=== PATIENT | male | born 1990 | race Hispanic/Latino ===

== ENCOUNTER 2021-04-14 18:37 | Emergency (ER) | payer SELFPAY ==
--- NOTE | 2021-04-14 19:58 | ER ---
Nurse's Notes [facility] Name: Munir Murray Age: 30 yrs Sex: Male : 1990 Arrival Date: 04/14/2021 Time: 18:40 Bed 7 Private MD: Diagnosis: Balanitis Presentation: 04/14 18:48 Chief complaint: Patient states: "I think I might have an STD, I have a little pimple jd3 on my penis that is causing some pain on touching it. potential exposure was last weekend.". Coronavirus screen: At this time, the client does not indicate any symptoms associated with coronavirus-19. Ebola Screen: Patient negative for fever greater than or equal to 101.5 degrees Fahrenheit, and additional compatible Ebola Virus Disease symptoms. Initial Sepsis Screen: Does the patient meet any 2 criteria? No. Patient's initial sepsis screen is negative. Does the patient have a suspected source of infection? No. Patient's initial sepsis screen is negative. Risk Assessment: Do you want to hurt yourself or someone else? Patient reports no desire to harm self or others. Onset of symptoms was April 11, 2021. 18:48 Method Of Arrival: Ambulatory jd3 18:48 Acuity: RITCHIE 4 jd3 Triage Assessment: 19:41 General: Appears in no apparent distress. Behavior is calm, cooperative. Pain: Denies ak2 pain. Historical: - Allergies: 18:50 No Known Allergies; jd3 - Home Meds: 18:50 None [Active]; jd3 - PMHx: 18:50 None; jd3 - PSHx: 18:50 None; jd3 - Immunization history:: Adult Immunizations up to date. - Social history:: Smoking status: Patient reports the use of cigarette tobacco products, denies chronic smoking, but will smoke occasionally. Screenin:41 Abuse screen: Denies threats or abuse. Denies injuries from another. Nutritional ak2 screening: No deficits noted. Tuberculosis screening: No symptoms or risk factors identified. Fall Risk None identified. Assessment: 20:02 General: Appears in no apparent distress. comfortable, Behavior is calm, cooperative. rr5 20:02 Pain: Complains of pain in penis Pain currently is 5 out of 10 on a pain scale. Neuro: rr5 Level of Consciousness is awake, alert, obeys commands, Oriented to person, place, time. Cardiovascular: Capillary refill < 3 seconds Patient's skin is warm and dry. Respiratory: Airway is patent Respiratory effort is even, unlabored, Respiratory pattern is regular, symmetrical. : Reports pimple in penile area. Vital Signs: 18:50 BP 163 / 107; Pulse 88; Resp 16 S; Temp 97.4(TE); Pulse Ox 99% on R/A; Weight 99.79 kg jd3 (R); Height 5 ft. 7 in. (170.18 cm) (R); Pain 5/10; 18:50 Body Mass Index 34.46 (99.79 kg, 170.18 cm) jd3 ED Course: 18:40 Patient arrived in ED. mr 18:50 Triage completed. jd3 18:51 Arm band placed on. jd3 19:39 Tashi Thrasher MD is Attending Physician. tw4 19:41 Israel Duarte is Primary Nurse. ak2 19:41 No apparent distress. ak2 19:41 Patient has correct armband on for positive identification. ak2 19:41 No provider procedures requiring assistance completed. ak2 20:03 Patient did not have IV access during this emergency room visit. rr5 Administered Medications: No medications were administered Outcome: 19:58 Discharge ordered by . tw4 20:03 Discharged to home ambulatory. rr5 20:03 Condition: stable 20:03 Discharge instructions given to patient, Instructed on discharge instructions, follow up and referral plans. medication usage, Demonstrated understanding of instructions, follow-up care, medications, Prescriptions given X 1. 20:04 Patient left the ED. rr5 Signatures: Gema Lane BetsyFausto RN RN jTashi Gilmore MD MD tw4 Jozef Askew RN RN rr5 Israel Duarte ak2
[2021-04-14 20:19] VITALS: BP 163/107; TEMP 97.4; O2SAT 99
--- NOTE | 2021-04-16 00:25 | EDPHYS ---
Physician Documentation [facility] Name: Munir Murray Age: 30 yrs Sex: Male : 1990 Arrival Date: 04/14/2021 Time: 18:40 Bed 7 Private MD: ED Physician Tashi Thrasher HPI: 04/14 22:28 This 30 yrs old Male presents to ER via Ambulatory with complaints of STD tw4 Exposure. Historical: - Allergies: 18:50 No Known Allergies; jd3 - Home Meds: 18:50 None [Active]; jd3 - PMHx: 18:50 None; jd3 - PSHx: 18:50 None; jd3 - Immunization history:: Adult Immunizations up to date. - Social history:: Smoking status: Patient reports the use of cigarette tobacco products, denies chronic smoking, but will smoke occasionally. Vital Signs: 18:50 BP 163 / 107; Pulse 88; Resp 16 S; Temp 97.4(TE); Pulse Ox 99% on R/A; Weight 99.79 kg jd3 (R); Height 5 ft. 7 in. (170.18 cm) (R); Pain 5/10; 18:50 Body Mass Index 34.46 (99.79 kg, 170.18 cm) jd3 MDM: 19:39 Patient medically screened. tw4 Administered Medications: No medications were administered Disposition: 04/14/21 19:58 Discharged to Home. Impression: Balanitis. - Condition is Stable. - Discharge Instructions: Balanitis. - Prescriptions for Clotrimazole 1 % Topical Cream - Apply to affected area 1 application by TOPICAL route every 12 hours; 15 gram. - Medication Reconciliation Form, Thank You Letter, Antibiotic Education, Prescription Opioid Use form. - Follow up: Private Physician; When: Upon discharge from the Emergency Department; Reason: Recheck today's complaints, Continuance of care, Re-evaluation by your physician. - Problem is new. - Symptoms have improved. Addendum: 04/17/2021 07:09 Addendum: HPI: Pt denies penile discharge lesions. Pt denies dysuria or abdominal pain. t w4 Addendum: ROS: positive for penile redness All other systems negative . Addendum: PE: : mild erythema glans of penis. Signatures: Fausto Meyer RN RN jd3 Tashi Thrasher MD MD tw4 Jozef Askew RN RN rr5 Corrections: (The following items were deleted from the chart) 04/14 20:04 19:58 04/14/2021 19:58 Discharged to Home. Impression: Balanitis. Condition is Stable. rr5 Forms are Medication Reconciliation Form, Thank You Letter, Antibiotic Education, Prescription Opioid Use. Follow up: Private Physician; When: Upon discharge from the Emergency Department; Reason: Recheck today's complaints, Continuance of care, Re-evaluation by your physician. Problem is new. Symptoms have improved. tw4
== END 2021-04-14 20:04 | disposition home or self-care (01) ==
LOC: ER 18:37
DX: N48.1 Balanitis (principal); Z20.2 Contact with and (suspected) exposure to infections with a predominantly sexual mode of transmission; F17.210 Nicotine dependence, cigarettes, uncomplicated
CPT/HCPCS: 99282